=== PATIENT | male | born 1995 | race Caucasian/White ===

== ENCOUNTER 2018-06-24 15:15 | Emergency (ER) | payer SELFPAY ==
[2018-06-24 15:33] VITALS: BP 140/92; PULSE 77; TEMP 98.2; BMI 22.8
--- NOTE | 2018-06-24 15:33 | PDOC ---
Rapid Medical Evaluation Chief Complaint: Pain, Acute Time Seen by Provider: 06/24/18 15:30 Medical Evaluation: Allergies Allergy/AdvReac Type Severity Reaction Status Date / Time No Known Allergies Allergy Verified 06/24/18 15:30 06/24/18 15:31 I have performed a brief in-person evaluation of this patient. The patient presents with a chief complaint of increase in pain in right knee. Patient treated for dislocated right knee states would like to have a "check up". Has appointment for ortho in the am Pertinent physical exam findings NAD even and unlabored breathing non tender patella, no warmth, I have ordered the following The patient will proceed to the ED for further evaluation.
[2018-06-24] MEDS ORDERED: LIDOCAINE HCL 1%, 10 MG/ML (50 mL VIAL) SQ ONE (16:05)
[2018-06-24] MEDS ORDERED: LIDOCAINE HCL 1%, 10 MG/ML (20ML VIAL) ONE (16:06)
--- NOTE | 2018-06-24 16:27 | PDOC ---
History of Present Illness - General Chief Complaint: Pain, Acute Stated Complaint: DISLOCATED KNEE Time Seen by Provider: 06/24/18 15:30 - History of Present Illness Initial Comments: 06/24/18 16:20 22-year-old male without comorbidities presents for evaluation of right knee pain. He states a few days ago he dislocated his knee. He describes a patella dislocation. It was reduced by the EMS workers and he now presents with a right knee effusion. He has no systemic symptoms. Past History - Past Medical History Allergies/Adverse Reactions: Allergies Allergy/AdvReac Type Severity Reaction Status Date / Time No Known Allergies Allergy Verified 06/24/18 15:33 Home Medications: Ambulatory Orders NK [No Known Home Medication] 06/24/18 COPD: No - Immunization History Immunization Up to Date: Yes - Suicide/Smoking/Psychosocial Hx Smoking History: Never smoked Hx Alcohol Use: No Drug/Substance Use Hx: No Review of Systems - Review of Systems Musculoskeletal: Yes: Joint Pain *Physical Exam - Vital Signs Last Vital Signs Temp Pulse Resp BP Pulse Ox 98.2 F 77 17 140/92 99 06/24/18 15:30 06/24/18 15:30 06/24/18 15:30 06/24/18 15:30 06/24/18 15:30 - Physical Exam Comments: 06/24/18 16:21 Right knee skin color and temperature are normal. Range of motion 0-90 beyond that causes pain. There is a large intra-articular effusion. He resist stability testing or patellofemoral apprehension. Thighs and calves are soft and nontender. He is neurovascularly intact. There are no gross sensorimotor deficits. Dorsal pedal pulse 2+. Moderate Sedation - Procedure Monitoring Vital Signs: Procedure Monitoring Vital Signs Temperature 98.2 F 06/24/18 15:30 Pulse Rate 77 06/24/18 15:30 Respiratory Rate 17 06/24/18 15:30 Blood Pressure 140/92 06/24/18 15:30 O2 Sat by Pulse Oximetry (%) 99 06/24/18 15:30 ED Treatment Course - Medications Given in the ED: ED Medications Discontinued Medications Generic Name Dose Route Start Last Admin Trade Name Freq PRN Reason Stop Dose Admin Lidocaine HCl 10 ml 06/24/18 16:05 06/24/18 16:11 Xylocaine 1% SQ 06/24/18 16:06 10 ml ONCE ONE Administration Medical Decision Making - Medical Decision Making Procedure note Under aseptic technique 30 mL of cera Nano is fluid was aspirated from the right knee. Prior to this 10 mL of 1% lidocaine was used for anesthesia this was also introduced aseptically. A dry sterile dressing was placed as well as a compression wrap. Anti-inflammatories given in the emergency room. This was tolerated well. Orthopedic surgery follow-up as scheduled for tomorrow. *DC/Admit/Observation/Transfer Diagnosis at time of Disposition: Knee effusion, right - Discharge Dispostion Disposition: HOME Condition at time of disposition: Stable Decision to Admit order: No - Referrals - Patient Instructions Additional Instructions: Return to the emergency room for worsening symptoms. He will given a dose of an anti-inflammatory in the emergency room. Don't take anything else for the remainder of this evening and tonight. Follow-up with orthopedic surgery as scheduled tomorrow. He may weight-bear as tolerated with crutches and the knee immobilizer. You may remove the knee immobilizer for hygiene. Do not sleep with a compression wrap on your knee. He may wash with soap and water this evening do not take a bath you can only take a shower. Do not submerge her limited water. - Post Discharge Activity
[2018-06-24] MEDS ORDERED: IBUPROFEN 600 MG TABLET (FP) PO ONE ×2 (16:33→16:35)
== END 2018-06-24 16:40 | disposition home or self-care (01) ==
LOC: JERFT 15:15
PROC: 0S9C3ZZ Drainage of Right Knee Joint, Percutaneous Approach (ICD-10-PCS; principal; 2018-06-24)
PROC: 3E023BZ Introduction of Anesthetic Agent into Muscle, Percutaneous Approach (ICD-10-PCS; 2018-06-24)
DX: M25.461 Effusion, right knee (principal)
CPT/HCPCS: 99281-25